=== PATIENT | female | born 1930 | race Caucasian/White ===

== ENCOUNTER 2017-08-07 10:45 | Inpatient (IN) | payer MEDICARE, BC ==
[2017-08-01 12:02] LABS: BASOPHILS # (AUTO) 0.1 X10'3 (0-0.2); BASOPHILS % (AUTO) 0.9 % (0-1); EOSINOPHILS # (AUTO) 0.2 X10'3 (0-0.9); EOSINOPHILS % (AUTO) 2.4 % (0-6); LYMPHOCYTES # (AUTO) 2.4 X10'3 (1.1-4.8); LYMPHOCYTES % (AUTO) 32.9 % (21-51); MEAN CORPUSCULAR HEMOGLOBIN 33.7 PG (27.0-31.0); MEAN CORPUSCULAR VOLUME 96.2 FL (78-98); MEAN PLATELET VOLUME 7.8 FL (7.4-10.4); MONOCYTES # (AUTO) 0.6 X10'3 (0-0.9); MONOCYTES % (AUTO) 8.7 % (2-12); NEUTROPHILS % (AUTO) 55.1 % (42-75); PRE OP HEMATOCRIT 41.3 % (35.0-45.0); PRE OP HEMOGLOBIN 14.5 g/dL (12.0-16.0); PRE OP PLATELET COUNT 223 X10'3 (140-440); RED BLOOD COUNT 4.29 X10'6 (4.20-5.60); RED CELL DISTRIBUTION WIDTH 13.6 % (11.5-14.5)
[2017-08-01 12:16] LABS: PRE OP INR 0.9 INR; PRE OP PROTIME 9.8 SECONDS (9.0-12.0)
[2017-08-01 12:22] LABS: ALBUMIN 4.1 G/DL (3.4-5.0); ALBUMIN/GLOBULIN RATIO 1.1 (1.1-1.5); ALKALINE PHOSPHATASE 81 IU/L (46-116); BLOOD UREA NITROGEN 22 MG/DL (7-18); BUN/CREATININE RATIO 36.1 (6.6-38.0); CALCIUM 9.5 MG/DL (8.5-10.1); CHLORIDE 104 MMOL/L (99-107); CREATININE 0.61 MG/DL (0.40-0.90); PRE OP ALT 42 U/L (30-65); PRE OP ANION GAP 9 (8-16); PRE OP AST 24 U/L (10-37); PRE OP BILIRUB, TOTAL 0.4 MG/DL (0.0-1.0); PRE OP GLUCOSE 96 MG/DL (70-104); PRE OP SODIUM 140 MMOL/L (135-145); TOTAL CARBON DIOXIDE 27.3 MMOL/L (24-32); TOTAL PROTEIN 7.7 G/DL (6.4-8.2); eGFR > 90 ML/MIN
[2017-08-07] VITALS (15 sets, daily range): BP systolic 114–153; BP diastolic 30–107
[~2017-08-07] VITALS: Ht 160 cm; Wt 66.1 kg
[~2017-08-07 10:45] MED LIST: CYAN-19 PO; FLUO15OI15 TOP; GLUC100017 PO; LORA10TA7 PO; LOVA10TA PO; MAGN250T29 PO; NAPR220C15 PO; UBID1CAP60 PO; VANCOMYCIN INJ 1000 MG in NORMAL SALINE 250ml IV.SOLN IV ONE; ceFAZolin inj. 2,000 MG in dextrose 5%-water 100 ML IV ONE; famotidine 20mg tablet PO ONE; ringers solution, lacted 1,000 ML IV SCH; tranexamic acid inj. 1,000 MG in normal saline 100ml IV soln 90 ML IV ONE
[2017-08-07] MEDS ORDERED: ceFAZolin 1000mg inj ONE (12:38)
[2017-08-07] MEDS ORDERED: BUPIVAcaine/PF 7.5mg/ml (0.75%) 10ml vial ONE (13:28)
[2017-08-07] MEDS ORDERED: tetracaine 1% (10mg/ml) pres. free inj. ONE (13:28)
[2017-08-07] MEDS ORDERED: MIDAZolam 5mg/5ml vial ONE (13:31)
[2017-08-07] MEDS ORDERED: fentaNYL/PF 50MCG/1 ML 2ML syringe ONE (13:31)
[2017-08-07] MEDS ORDERED: ringers solution, lacted 1,000 ML IV SCH (14:18)
[2017-08-07] MEDS ORDERED: proCHLORperazine 10 MG/2 ml inj IV PRN (14:20)
[2017-08-07] MEDS ORDERED: meperidine/PF 25mg/ml syringe IV PRN ×3 (14:20)
[2017-08-07] MEDS ORDERED: ondansetron/PF 4mg/2ml inj IV PRN (14:20)
[2017-08-07] MEDS ORDERED: morphine 4 MG/ML inj SYRINge IV PRN ×2 (14:20)
[2017-08-07] MEDS ORDERED: cloNIDine hcl/PF 100mcg/ml inj ONE (14:50)
[2017-08-07] MEDS ORDERED: ROPIVAcaine 0.5% (5mg/ml) 30ml vial ONE (14:50)
[2017-08-07] MEDS ORDERED: propofol inj 20 ML IV ONE (16:06)
[2017-08-07] MEDS ORDERED: bisacodyl 10mg suppository rectal RC PRN (16:10)
[2017-08-07] MEDS ORDERED: diphenhydrAMINE 25mg capsule PO PRN ×2 (16:10)
[2017-08-07] MEDS ORDERED: acetaminophen 325mg tablet PO PRN (16:10)
[2017-08-07] MEDS ORDERED: magnesium hydroxide 30ml (MOM) UD suspension PO PRN (16:10)
[2017-08-07] MEDS: ondansetron/PF 4mg/2ml inj IV PRN (18:45)
[2017-08-07] MEDS: HYDROmorphone 1 mg/ml syringe IV PRN ×2 (18:54→23:38)
[2017-08-07] MEDS ORDERED: NORMAL SALINE IV ONE (19:00)
[2017-08-07] MEDS ORDERED: TRANEXAMIC ACID IV ONE (19:00)
[2017-08-07] MEDS: potassium cl 20mEq in 1/2 NS 1,000 ML IV SCH (19:22)
[2017-08-07] MEDS ORDERED: vancomycin/NS 1 GM ADD-VANTAGE 250 ML IV SCH (20:00)
[2017-08-07] MEDS: HYDROcodone/acetaminophen 10/325mg tab PO PRN ×2 (20:27→21:31)
[2017-08-07] MEDS: sennosides 8.6mg tablet PO SCH (21:00)
[2017-08-07] MEDS: aspirin 81mg tablet.DR PO SCH (21:29)
[2017-08-07] MEDS: ceFAZolin 1GM/D5W- ADD-VANTAGE 50 ML IV SCH (23:41)
[2017-08-08 02:01] VITALS: BP 106/59
[2017-08-08] MEDS: HYDROcodone/acetaminophen 10/325mg tab PO PRN (05:12)
[2017-08-08] MEDS: ondansetron/PF 4mg/2ml inj IV PRN ×2 (05:17→11:46)
[2017-08-08] MEDS: potassium cl 20mEq in 1/2 NS 1,000 ML IV SCH ×2 (05:29→20:51)
[2017-08-08 06:00] VITALS: BP 167/75
[2017-08-08] MEDS ORDERED: scopolamine 1.5mg patch.TD72 TD ONE (06:55)
[2017-08-08 07:12] LABS: BASOPHILS % (AUTO) 0.3 % (0-1); EOSINOPHILS % (AUTO) 0 % (0-6); HEMATOCRIT 36.6 % (35.0-45.0); HEMOGLOBIN 12.5 g/dl (12.0-16.0); LYMPHOCYTES # (AUTO) 1.6 X10'3 (1.1-4.8); LYMPHOCYTES % (AUTO) 14.8 % (21-51); MEAN CORPUSCULAR HEMOGLOBIN 33.3 PG (27.0-31.0); MEAN CORPUSCULAR HGB CONC 34.1 % (33.0-36.5); MEAN CORPUSCULAR VOLUME 97.4 FL (78-98); MEAN PLATELET VOLUME 8.2 FL (7.4-10.4); MONOCYTES % (AUTO) 9.9 % (2-12); NEUTROPHILS # (AUTO) 7.9 X10'3 (1.8-7.7); PLATELET COUNT 191 X10'3 (140-440); RED BLOOD COUNT 3.75 X10'6 (4.20-5.60); RED CELL DISTRIBUTION WIDTH 13.7 % (11.5-14.5); WHITE BLOOD COUNT 10.5 X10'3 (4.5-11.0)
[2017-08-08] MEDS: ceFAZolin 1GM/D5W- ADD-VANTAGE 50 ML IV SCH (07:21)
[2017-08-08] MEDS: aspirin 81mg tablet.DR PO SCH ×2 (07:24→20:50)
[2017-08-08] MEDS: loratadine 10mg tablet PO SCH (07:24)
[2017-08-08 07:36] LABS: ALANINE AMINOTRANSFERASE 35 U/L (12-78); ALBUMIN 3.4 G/DL (3.4-5.0); ALBUMIN/GLOBULIN RATIO 1.1 (1.1-1.5); ALKALINE PHOSPHATASE 68 IU/L (46-116); ANION GAP 10 (8-16); ASPARTATE AMINO TRANSFERASE 22 U/L (10-37); BILIRUBIN,TOTAL 0.7 MG/DL (0.1-1.0); BLOOD UREA NITROGEN 10 MG/DL (7-18); BUN/CREATININE RATIO 13.2 (6.6-38.0); CALCIUM 8.6 MG/DL (8.5-10.1); CHLORIDE 101 MMOL/L (99-107); CREATININE 0.76 MG/DL (0.40-0.90); GLUCOSE 178 MG/DL (70-104); POTASSIUM 4.1 MMOL/L (3.5-5.1); SODIUM 137 MMOL/L (135-145); TOTAL CARBON DIOXIDE 26.5 MMOL/L (24-32); TOTAL PROTEIN 6.5 G/DL (6.4-8.2); eGFR 72 ML/MIN
[2017-08-08] MEDS ORDERED: metoclopramide 5 mg/ml inj IV ONE (07:40)
[2017-08-08 10:00] VITALS: BP 131/50
[2017-08-08] MEDS: ketorolac tromethamine 15mg/ml inj. IV SCH (20:50)
[2017-08-08] MEDS: sennosides 8.6mg tablet PO SCH (20:50)
[2017-08-08 22:00] VITALS: BP 111/41
[2017-08-09] MEDS: ketorolac tromethamine 15mg/ml inj. IV SCH ×4 (02:38→20:33)
[2017-08-09] MEDS: HYDROcodone/acetaminophen 10/325mg tab PO PRN ×2 (02:39→12:31)
[2017-08-09] MEDS: ondansetron/PF 4mg/2ml inj IV PRN (02:39)
[2017-08-09 05:00] VITALS: BP 126/44
[2017-08-09 05:49] LABS: BASOPHILS % (AUTO) 0.3 % (0-1); EOSINOPHILS % (AUTO) 0.2 % (0-6); HEMATOCRIT 30.3 % (35.0-45.0); HEMOGLOBIN 10.5 g/dl (12.0-16.0); LYMPHOCYTES # (AUTO) 1.8 X10'3 (1.1-4.8); LYMPHOCYTES % (AUTO) 19.6 % (21-51); MEAN CORPUSCULAR HEMOGLOBIN 33.7 PG (27.0-31.0); MEAN CORPUSCULAR HGB CONC 34.7 % (33.0-36.5); MEAN CORPUSCULAR VOLUME 96.9 FL (78-98); MEAN PLATELET VOLUME 8.2 FL (7.4-10.4); MONOCYTES # (AUTO) 0.9 X10'3 (0-0.9); MONOCYTES % (AUTO) 10.1 % (2-12); NEUTROPHILS # (AUTO) 6.4 X10'3 (1.8-7.7); NEUTROPHILS % (AUTO) 69.8 % (42-75); PLATELET COUNT 151 X10'3 (140-440); RED BLOOD COUNT 3.13 X10'6 (4.20-5.60); RED CELL DISTRIBUTION WIDTH 13.5 % (11.5-14.5); WHITE BLOOD COUNT 9.2 X10'3 (4.5-11.0)
[2017-08-09 05:59] LABS: ALANINE AMINOTRANSFERASE 25 U/L (12-78); ALBUMIN 2.7 G/DL (3.4-5.0); ALBUMIN/GLOBULIN RATIO 0.9 (1.1-1.5); ALKALINE PHOSPHATASE 52 IU/L (46-116); ANION GAP 8 (8-16); ASPARTATE AMINO TRANSFERASE 19 U/L (10-37); BILIRUBIN,TOTAL 0.5 MG/DL (0.1-1.0); BLOOD UREA NITROGEN 11 MG/DL (7-18); BUN/CREATININE RATIO 15.5 (6.6-38.0); CHLORIDE 106 MMOL/L (99-107); CREATININE 0.71 MG/DL (0.40-0.90); GLUCOSE 116 MG/DL (70-104); POTASSIUM 3.9 MMOL/L (3.5-5.1); SODIUM 142 MMOL/L (135-145); TOTAL CARBON DIOXIDE 27.7 MMOL/L (24-32); TOTAL PROTEIN 5.7 G/DL (6.4-8.2); eGFR 78 ML/MIN
[2017-08-09] MEDS: aspirin 81mg tablet.DR PO SCH ×2 (08:13→17:41)
[2017-08-09] MEDS: loratadine 10mg tablet PO SCH (08:15)
[2017-08-09 10:00] VITALS: BP 131/54
[2017-08-09] MEDS: potassium cl 20mEq in 1/2 NS 1,000 ML IV SCH (12:31)
[2017-08-09 18:00] VITALS: BP 134/59
[2017-08-09] MEDS: sennosides 8.6mg tablet PO SCH (20:34)
[2017-08-09 22:00] VITALS: BP 131/57
[2017-08-10] MEDS: ondansetron/PF 4mg/2ml inj IV PRN (02:47)
[2017-08-10] MEDS: HYDROcodone/acetaminophen 10/325mg tab PO PRN ×5 (02:47→20:49)
[2017-08-10 05:49] LABS: BASOPHILS % (AUTO) 0.4 % (0-1); EOSINOPHILS # (AUTO) 0.1 X10'3 (0-0.9); EOSINOPHILS % (AUTO) 1.6 % (0-6); HEMATOCRIT 29.7 % (35.0-45.0); HEMOGLOBIN 10.1 g/dl (12.0-16.0); LYMPHOCYTES # (AUTO) 1.6 X10'3 (1.1-4.8); LYMPHOCYTES % (AUTO) 19.8 % (21-51); MEAN CORPUSCULAR HEMOGLOBIN 33.2 PG (27.0-31.0); MEAN CORPUSCULAR VOLUME 97.6 FL (78-98); MEAN PLATELET VOLUME 8.1 FL (7.4-10.4); MONOCYTES # (AUTO) 0.8 X10'3 (0-0.9); MONOCYTES % (AUTO) 9.6 % (2-12); NEUTROPHILS # (AUTO) 5.4 X10'3 (1.8-7.7); NEUTROPHILS % (AUTO) 68.6 % (42-75); PLATELET COUNT 154 X10'3 (140-440); RED BLOOD COUNT 3.05 X10'6 (4.20-5.60); RED CELL DISTRIBUTION WIDTH 13.6 % (11.5-14.5); WHITE BLOOD COUNT 7.9 X10'3 (4.5-11.0)
[2017-08-10 06:33] LABS: ALANINE AMINOTRANSFERASE 22 U/L (12-78); ALBUMIN 2.5 G/DL (3.4-5.0); ALBUMIN/GLOBULIN RATIO 0.8 (1.1-1.5); ALKALINE PHOSPHATASE 56 IU/L (46-116); ANION GAP 6 (8-16); ASPARTATE AMINO TRANSFERASE 18 U/L (10-37); BILIRUBIN,TOTAL 0.5 MG/DL (0.1-1.0); BLOOD UREA NITROGEN 12 MG/DL (7-18); BUN/CREATININE RATIO 16.4 (6.6-38.0); CALCIUM 8.4 MG/DL (8.5-10.1); CHLORIDE 106 MMOL/L (99-107); CREATININE 0.73 MG/DL (0.40-0.90); GLUCOSE 117 MG/DL (70-104); POTASSIUM 4.2 MMOL/L (3.5-5.1); SODIUM 140 MMOL/L (135-145); TOTAL CARBON DIOXIDE 28.4 MMOL/L (24-32); TOTAL PROTEIN 5.7 G/DL (6.4-8.2); eGFR 76 ML/MIN
[2017-08-10] MEDS: loratadine 10mg tablet PO SCH (07:35)
[2017-08-10] MEDS: aspirin 81mg tablet.DR PO SCH ×2 (07:36→17:09)
[2017-08-10 10:00] VITALS: BP 130/64
[2017-08-10 18:00] VITALS: BP 140/56
[2017-08-10] MEDS: sennosides 8.6mg tablet PO SCH (20:48)
[2017-08-10 22:00] VITALS: BP 145/64
[2017-08-11 05:00] VITALS: BP 140/69
[2017-08-11] MEDS: HYDROcodone/acetaminophen 10/325mg tab PO PRN ×2 (05:01→11:08)
[2017-08-11] MEDS ORDERED: ASPI-1071 PO (08:33)
[2017-08-11] MEDS ORDERED: HYDR-3972 PO (08:33)
[2017-08-11] MEDS: aspirin 81mg tablet.DR PO SCH (09:24)
[2017-08-11] MEDS: loratadine 10mg tablet PO SCH (09:24)
[2017-08-11 10:00] VITALS: BP 141/61
[2017-08-11] MEDS: ondansetron/PF 4mg/2ml inj IV PRN (11:09)
[2017-08-11] MEDS ORDERED: proCHLORperazine 10 MG/2 ml inj IV PRN (12:20)
== END 2017-08-11 15:13 | disposition home health service (06) | DRG 470 ==
LOC: PAS IN 12:17 → EDSTATUS 14:30 → ORTHO 4S 17:00
PROVIDERS: ADMIT Orthopaedic Surgery; ATTEND Orthopaedic Surgery
PROC: 3E0T3BZ Introduction of Anesthetic Agent into Peripheral Nerves and Plexi, Percutaneous Approach (ICD-10-PCS; 2017-08-07)
PROC: 0SRC0J9 Replacement of Right Knee Joint with Synthetic Substitute, Cemented, Open Approach (ICD-10-PCS; principal; 2017-08-07 13:24)
DX: M17.11 Unilateral primary osteoarthritis, right knee (principal); D62 Acute posthemorrhagic anemia; R11.2 Nausea with vomiting, unspecified; Z79.899 Other long term (current) drug therapy; Z88.1 Allergy status to other antibiotic agents
CPT/HCPCS: 36415; 80053; 85025; 85610; 85730; 86885; 86900; 86901; 86920; 87070; 93005; 97110; 97116; 97162; 97530; A6223; A6258; A6449; A6454; A7000; C1713; C1758; C1776; J0690; J0735; J0780; J1170; J1885; J2250; J2405; J2704; J2765; J2795; J3010; J3370; J3490; J7030; J7060; J7120; Q0163

== ENCOUNTER 2017-08-13 12:29 | Emergency (ER) | payer MEDICARE, BC ==
[~2017-08-13] VITALS: Ht 160 cm; Wt 67.3 kg
[~2017-08-13 12:29] MED LIST changes: +ASPI-1071 PO; -CYAN-19 PO; -FLUO15OI15 TOP; -GLUC100017 PO; +HYDR-3972 PO; -LOVA10TA PO; -MAGN250T29 PO; -NAPR220C15 PO; -UBID1CAP60 PO; -VANCOMYCIN INJ 1000 MG in NORMAL SALINE 250ml IV.SOLN IV ONE; -ceFAZolin inj. 2,000 MG in dextrose 5%-water 100 ML IV ONE; -famotidine 20mg tablet PO ONE; -ringers solution, lacted 1,000 ML IV SCH; -tranexamic acid inj. 1,000 MG in normal saline 100ml IV soln 90 ML IV ONE
[2017-08-13 12:30] VITALS: BP 137/86
[2017-08-13 13:19] LABS: BASOPHILS % (AUTO) 0.5 % (0-1); EOSINOPHILS # (AUTO) 0.2 X10'3 (0-0.9); EOSINOPHILS % (AUTO) 2.8 % (0-6); HEMATOCRIT 34.7 % (35.0-45.0); HEMOGLOBIN 11.8 g/dl (12.0-16.0); LYMPHOCYTES # (AUTO) 1.4 X10'3 (1.1-4.8); LYMPHOCYTES % (AUTO) 18.9 % (21-51); MEAN CORPUSCULAR HEMOGLOBIN 33.4 PG (27.0-31.0); MEAN CORPUSCULAR VOLUME 98.1 FL (78-98); MEAN PLATELET VOLUME 7.1 FL (7.4-10.4); MONOCYTES # (AUTO) 0.8 X10'3 (0-0.9); MONOCYTES % (AUTO) 10.8 % (2-12); NEUTROPHILS # (AUTO) 5.1 X10'3 (1.8-7.7); PLATELET COUNT 293 X10'3 (140-440); RED BLOOD COUNT 3.53 X10'6 (4.20-5.60); RED CELL DISTRIBUTION WIDTH 13.6 % (11.5-14.5); WHITE BLOOD COUNT 7.7 X10'3 (4.5-11.0)
[2017-08-13] MEDS ORDERED: lactulose 20gm/30ml cup PO ONE (13:25)
[2017-08-13 13:30] LABS: INR 0.9 INR; PARTIAL THROMBOPLASTIN TIME 27 SECONDS (22-32); PROTHROMBIN TIME 9.6 SECONDS (9.0-12.0)
[2017-08-13 13:58] LABS: ALANINE AMINOTRANSFERASE 32 U/L (12-78); ALBUMIN 3.5 G/DL (3.4-5.0); ALBUMIN/GLOBULIN RATIO 0.9 (1.1-1.5); ALKALINE PHOSPHATASE 72 IU/L (46-116); ANION GAP 9 (8-16); ASPARTATE AMINO TRANSFERASE 27 U/L (10-37); BILIRUBIN,TOTAL 0.8 MG/DL (0.1-1.0); BLOOD UREA NITROGEN 11 MG/DL (7-18); BUN/CREATININE RATIO 14.9 (6.6-38.0); CALCIUM 8.9 MG/DL (8.5-10.1); CHLORIDE 98 MMOL/L (99-107); CREATININE 0.74 MG/DL (0.40-0.90); GLUCOSE 117 MG/DL (70-104); POTASSIUM 3.9 MMOL/L (3.5-5.1); SODIUM 138 MMOL/L (135-145); TOTAL CARBON DIOXIDE 30.6 MMOL/L (24-32); TOTAL PROTEIN 7.6 G/DL (6.4-8.2); eGFR 75 ML/MIN
== END 2017-08-13 14:28 | disposition home or self-care (01) ==
LOC: ER 12:29
DX: K59.00 Constipation, unspecified (principal); R10.9 Unspecified abdominal pain; G89.29 Other chronic pain; M19.90 Unspecified osteoarthritis, unspecified site; Z98.890 Other specified postprocedural states; Z88.8 Allergy status to other drugs, medicaments and biological substances; Z79.82 Long term (current) use of aspirin; Z79.899 Other long term (current) drug therapy
CPT/HCPCS: 36415; 74018; 80053; 83605; 85025; 85610; 85730; 87040; 99285